=== PATIENT | male | born 1990 | race Caucasian/White ===

== ENCOUNTER 2016-09-08 14:21 | Emergency (ER) | payer MEDICAID ==
[2016-09-08 14:32] VITALS: BP 114/74; TEMP 98.9
--- NOTE | 2016-09-08 15:18 | RAD ---
HISTORY: productive cough COMPARISON: Comparison chest 01/16/2016 TECHNIQUE: Chest PA and lateral FINDINGS: LUNGS: No focal consolidation. PLEURA: No significant pleural effusion identified. No pneumothorax apparent. CARDIOVASCULAR: Normal. OSSEOUS STRUCTURES: No significant abnormalities. VISUALIZED UPPER ABDOMEN: Normal. OTHER FINDINGS: None. IMPRESSION: No active disease.
[2016-09-08] MEDS ORDERED: Promethazine/Cod 6.25mg-10mg/5ml Syr UD PO STA (15:26)
[2016-09-08] MEDS ORDERED: Promethazine/Cod 6.25mg-10mg/5ml Syr UD ONE (15:39)
--- NOTE | 2016-09-08 16:36 | C.PDOC ---
History Of Present Illness Patient c/o nasal congestion, green nasal discharge and productive cough for 1 week. Patient sts he had fever for the first 2 days of illness, then fever subsided. Time Seen by Provider: 09/08/16 14:38 Chief Complaint (Nursing): Cough, Cold, Congestion History Per: Patient History/Exam Limitations: no limitations Onset/Duration Of Symptoms: Days (7) Current Symptoms Are (Timing): Still Present Severity: Moderate Pain Scale Rating Of: 0 Past Medical History Reviewed: Historical Data, Nursing Documentation Vital Signs: Last Vital Signs Temp 98.9 F 09/08/16 14:30 Pulse 77 09/08/16 16:41 Resp 18 09/08/16 16:41 BP 114/74 09/08/16 14:30 Pulse Ox 97 09/08/16 16:41 - Medical History PMH: Asthma, Bronchitis Family History: States: Unknown Family Hx - Social History Hx Tobacco Use: Yes (light smoker) Hx Alcohol Use: Yes Hx Substance Use: No - Immunization History Hx Tetanus Toxoid Vaccination: No Hx Influenza Vaccination: No Hx Pneumococcal Vaccination: No Review Of Systems Except As Marked, All Systems Reviewed And Found Negative. Constitutional: Negative for: Fever ENT: Positive for: Nose Discharge, Nose Congestion Respiratory: Positive for: Cough, Sputum Physical Exam - Physical Exam Appears: Well, Non-toxic, No Acute Distress Skin: Normal Color Head: Atraumatic, Normacephalic Eye(s): bilateral: Normal Inspection Ear(s): Bilateral: Normal Nose: Normal, Discharge (yellow) Throat: Normal, No Erythema, No Exudate Neck: Normal ROM, Supple Lymphatic: Normal Exam Chest: Symmetrical, No Tenderness Cardiovascular: Rhythm Regular Respiratory: Normal Breath Sounds, No Wheezing Gastrointestinal/Abdominal: Normal Exam, Soft, No Tenderness Extremity: Normal ROM Neurological/Psych: Oriented x3, Normal Speech, Normal Cognition, Normal Motor, Normal Sensation ED Course And Treatment O2 Sat by Pulse Oximetry: 98 - Other Rad Hand Xray X-Ray: Viewed By Me, Read By Radiologist Interpretation: Accession No. : [id number]. Patient Name / ID : SOM WANG / [id number]. Exam Date : 09/08/2016 15:05:04 ( Approved ). Study Comment : Sex / Age : M / 26Y. Creator : Prem Naravez MD. Dictator : Prem Narvaez MD. Office Executive : Door Technician : Prem Narvaez MD. Approver2 : Report Date : 09/08/2016 15:16:22. My Comment : . HISTORY: productive cough. COMPARISON: Comparison chest 01/16/2016. TECHNIQUE: Chest PA and lateral. FINDINGS: LUNGS: No focal consolidation. PLEURA: No significant pleural effusion identified. No pneumothorax apparent. CARDIOVASCULAR: Normal. OSSEOUS STRUCTURES: No significant abnormalities. VISUALIZED UPPER ABDOMEN: Normal. OTHER FINDINGS: None. IMPRESSION: No active disease. Progress Note: Patient was treated in ED with Zithromax and Prometazine with codeine. Patient was d/c home with PMD/Clinic follow up. Disposition - Disposition Disposition: HOME/ ROUTINE Disposition Time: 16:34 Condition: STABLE Additional Instructions: Follow up with PMD within 1-2 days. Return to Ed if feel worse. Prescriptions: Fluticasone Nasal [Flonase] 1 spr NS BID #1 spr Promethazine HCl/Codeine [Prometh-Codein 6.25-10 mg/5 ml] 5 ml PO .Q4-6H #150 ml Albuterol HFA [Ventolin HFA 90 mcg/actuation (8 g)] 1 puff IH .Q4-6H #1 inhaler Azithromycin [Zithromax] 250 mg PO DAILY #4 tab Instructions: Sinusitis (ED), Upper Respiratory Infection (ED) - Clinical Impression Clinical Impression: Upper respiratory infection, Sinusitis
[2016-09-08 16:43] VITALS: PULSE 77; RESP 18
[2016-09-08 17:26] VITALS: O2SAT 98
== END 2016-09-08 16:43 | disposition home or self-care (01) ==
LOC: C.ER 14:21
DX: J06.9 Acute upper respiratory infection, unspecified (principal); J32.9 Chronic sinusitis, unspecified

== ENCOUNTER 2016-09-10 03:59 | Emergency (ER) | payer MEDICAID ==
[2016-09-10 04:10] VITALS: RESP 18; O2SAT 97
--- NOTE | 2016-09-10 04:39 | C.PDOC ---
History Of Present Illness A 26 y/o M c/o left ear ache for the past 2 hrs. Pt was seen here yesterday for nasal congestion and sore throat. Denies fever, ear discharge, headache, dizziness, or any other complaints. Time Seen by Provider: 09/10/16 04:15 Chief Complaint (Nursing): ENT Problem History Per: Patient History/Exam Limitations: None Onset/Duration Of Symptoms: Hrs Current Symptoms Are (Timing): Still Present Severity: Mild Past Medical History Reviewed: Historical Data, Nursing Documentation, Vital Signs Vital Signs: Last Vital Signs Temp 98.0 F 09/10/16 05:18 Pulse 82 09/10/16 05:18 Resp 18 09/10/16 05:18 BP 101/53 L 09/10/16 05:18 Pulse Ox 97 09/10/16 05:23 - Medical History PMH: Asthma, Bronchitis Family History: States: Unknown Family Hx - Social History Hx Tobacco Use: Yes (light smoker) Hx Alcohol Use: Yes Hx Substance Use: No - Immunization History Hx Tetanus Toxoid Vaccination: No Hx Influenza Vaccination: No Hx Pneumococcal Vaccination: No Review Of Systems Except As Marked, All Systems Reviewed And Found Negative. Constitutional: Negative for: Fever ENT: Positive for: Ear Pain (Left). Negative for: Ear Discharge Neurological: Negative for: Headache, Dizziness Physical Exam - Physical Exam Appears: Non-toxic, No Acute Distress Skin: Warm, Dry Head: Atraumatic, Normacephalic Eye(s): bilateral: Normal Inspection, PERRL, Other (Moderate cerumen impaction. No tragal tenderness. Decrease visualization of the TM due to cerumen) Nose: Normal, Discharge Throat: Normal ED Course And Treatment O2 Sat by Pulse Oximetry: 97 (RA) Pulse Ox Interpretation: Normal Progress Note: Impression: A 26 y/o M c/o left ear ache for the past 2 hrs. Plans: Cerumen removal, Reassess. Hydrogen peroxide applied in the left ear. Ear irrigated with saline. Pt is in no acute distress at this time. Ear pain has improved and pt will be discharged. Pt instructed to follow up with PMD if symptoms worsens. Disposition Counseled Patient/Family Regarding: Diagnosis, Need For Followup, Rx Given - Disposition Referrals: [facility] [Outside] Disposition: HOME/ ROUTINE Disposition Time: 04:38 Condition: STABLE Additional Instructions: Apply drops as directed Follow up with PMD Return to ER if worse Prescriptions: Carbamide Peroxide [Debrox Ear Drops] 3 - 5 drop AU BID #1 bottle Cetirizine HCl [Zyrtec] 10 mg PO DAILY #20 capsule Instructions: Cerumen Impaction (ED) - Clinical Impression Clinical Impression: Impacted cerumen of both ears - Scribe Statement The provider has reviewed the documentation as recorded by the Scribcody nino All medical record entries made by the Mitchellibcody were at my direction and personally dictated by me. I have reviewed the chart and agree that the record accurately reflects my personal performance of the history, physical exam, medical decision making, and the department course for this patient. I have also personally directed, reviewed, and agree with the discharge instructions and disposition.
[2016-09-10 05:21] VITALS: BP 101/53; PULSE 82; TEMP 98
== END 2016-09-10 05:21 | disposition home or self-care (01) ==
LOC: C.ER 03:59 → SUPCPDRO 03:59 → C.ER 05:21
DX: H61.23 Impacted cerumen, bilateral (principal)